=== PATIENT | male | born 1965 | race Caucasian/White ===

== ENCOUNTER → 2017-06-15 | Outpatient (CLI) | payer BC ==
--- NOTE | 2017-06-15 16:04 | XR ---
EXAMINATION TYPE: XR chest 2V DATE OF EXAM: 06/15/2017 COMPARISON: Prior chest x-ray 05/18/2015 HISTORY: Cough TECHNIQUE: Frontal and lateral views of the chest are obtained. FINDINGS: There is no focal air space opacity, pleural effusion, or pneumothorax seen. The cardiac silhouette size is within normal limits. Prominent lung volume may be indicative of COPD. Question s ome bronchial wall thickening. The osseous structures are intact. IMPRESSION: Consider reactive airways disease, bronchitis.
== END ==
LOC: RADXRYALE 15:50
PROVIDERS: ATTEND Internal Medicine
DX: J40 Bronchitis, not specified as acute or chronic (principal)
CPT/HCPCS: 71046

== ENCOUNTER 2017-07-06 09:50 | Day surgery (SDC) | payer BC ==
[2017-07-04 13:46] VITALS: BMI 29.0
[~2017-07-06 09:50] MED LIST: LACTATED RINGERS 1,000 ML IV SCH; LIDOCAINE 1% 20 ML VIAL (10MG/ML) FOR IV START INTRADERMA PRN
[2017-07-06 10:23] VITALS: RESP 16; TEMP 97.7
[2017-07-06] MEDS ORDERED: LIDOCAINE 1% INJ 10MG/ML (20 ML MDV) ONE (10:51)
[2017-07-06] MEDS ORDERED: PROPOFOL 10 MG/ML 20 ML VIAL IV ONE (10:51)
--- NOTE | 2017-07-06 11:13 | P.PCN ---
Date of Procedure: 07/06/17 Procedure(s) Performed: BRIEF HISTORY: Patient is a 52-year-old pleasant white male, scheduled for an elective colonoscopy as a part of screening for colon neoplasia. PROCEDURE PERFORMED: Colonoscopy with snare polypectomy PREOPERATIVE DIAGNOSIS: Screening for colon cancer. IV sedation per Anesthesia. PROCEDURE: After informed consent was obtained, the patient, was brought into the endoscopy unit. IV sedation was administered by Anesthesia under continuous monitoring. Digital rectal examination was normal. Initially the Olympus CF- 160 flexible video colonoscope was then inserted in the rectum, gradually advanced into the cecum without any difficulty. Careful examination was performed as the scope was gradually being withdrawn. Ileocecal valve and the appendiceal orifice were visualized and appeared normal. Prep was excellent. Mucosa of the cecum, ascending colon appeared normal. In the hepatic flexure there was a 7-8 mm sessile polyp that was removed by snare polypectomy. The rest of the, transverse colon, descending colon, sigmoid colon, and rectum appeared normal. Retroflexion was performed in the rectum and no lesions were seen. The patient tolerated the procedure well. IMPRESSION: 7-8 mm sessile hepatic flexure polyp status post polypectomy Rest of the colon appeared normal RECOMMENDATIONS: Findings of this examination were discussed with the patient as his family. He was advised to follow with the biopsy results and if the biopsy shows a adenoma, he can have a repeat colonoscopy in 5 years
[2017-07-06 11:35] VITALS: BP 150/94; PULSE 70
== END 2017-07-06 12:09 | disposition home or self-care (01) ==
LOC: ORWHC2ENDO 09:50
PROVIDERS: ATTEND Internal Medicine Gastroenterology
DX: Z12.11 Encounter for screening for malignant neoplasm of colon (principal); D12.3 Benign neoplasm of transverse colon
CPT/HCPCS: 88305; 45385; J2001; J2704

== ENCOUNTER → 2018-08-14 | Outpatient (CLI) | payer OTHER ==
[2018-08-14 19:57] LABS: ALT 49 U/L (10-49); AST 32 U/L (14-35); Albumin/Globulin Ratio 1.88 (1.60-3.17); Alkaline Phosphatase 63 U/L (41-126); BUN/Creat Ratio 15.83 Ratio (12.00-20.00); Carbon Dioxide 28.1 mmol/L (21.6-31.8); Chloride 101 mmol/L (96-109); Cholesterol 234 mg/dL (0-200); Globulin 2.5 g/dL (1.6-3.3); Glucose 116 mg/dL (70-110); Potassium 5.1 mmol/L (3.5-5.5); Sodium 140 mmol/L (135-145); Total Bilirubin 0.7 mg/dL (0.3-1.2); Total Protein 7.2 g/dL (6.2-8.2)
== END | disposition home or self-care (01) ==
LOC: LABWHC1 12:48
PROVIDERS: ATTEND Internal Medicine Clinical Cardiac Electrophysiology
DX: I10 Essential (primary) hypertension (principal); E78.5 Hyperlipidemia, unspecified
CPT/HCPCS: 36415; 80053; 80061; 83721

== ENCOUNTER → 2018-09-14 | Outpatient (CLI) | payer OTHER ==
[2018-09-14 18:59] LABS: Hemoglobin A1C 6.4 % (4.0-6.0)
[2018-09-14 19:02] LABS: LDL Cholesterol,Calculated 136.8 mg/dL (0.0-131.0); VLDL Calculation 32.2 mg/dL (5.00-40.00)
== END | disposition home or self-care (01) ==
LOC: LABWHC1 08:16
PROVIDERS: ATTEND Internal Medicine
DX: R73.9 Hyperglycemia, unspecified (principal); E78.00 Pure hypercholesterolemia, unspecified
CPT/HCPCS: 36415; 80061; 82947; 83036

== ENCOUNTER → 2020-12-27 | Outpatient (CLI) | payer OTHER, BC ==
--- NOTE | 2020-12-27 07:22 | MR ---
EXAMINATION TYPE: MR shoulder RT wo con DATE OF EXAM: 12/27/2020 COMPARISON: Plain film 11/30/2020 HISTORY: Rt Shoulder Pain TECHNIQUE: Multiplanar, multisequence imaging of the right shoulder is performed without contrast. FINDINGS: Rotator Cuff: There is a tear of the rotator cuff with retraction of the supraspinatus tendon to the level of the acromion, fluid signal is present along the humeral head at this level. Infraspinatus te ndon appears somewhat attenuated. Fluid signal is present along the musculotendinous junction of subs capularis. Subscapularis tendon is also thought to be at least partially torn and retracted, axial im age #9 series 301. Acromioclavicular Joint: There is arthropathy at the acromioclavicular joint. Distal acromial spur is present. Glenohumeral Joint: Intact, some mild remodeling at the humeral head noted Labrum: The labrum appears grossly intact given limitation of non-arthrogram study. Biceps Tendon: Fluid signal is present along the long head of biceps tendon which shows a normal posi tion in the bicipital groove Bone marrow signal: No focal abnormal marrow signal is appreciated. Other: There is a joint effusion present. IMPRESSION: Rotator cuff tear as described. Additional findings above.
== END | disposition home or self-care (01) ==
LOC: RADMRIMAIN 05:55
PROVIDERS: ATTEND Orthopaedic Surgery
DX: M75.101 Unspecified rotator cuff tear or rupture of right shoulder, not specified as traumatic (principal)

== ENCOUNTER 2022-12-01 10:10 | Day surgery (SDC) | payer OTHER, BC ==
[2022-11-24 12:36] VITALS: BMI 28.6
[~2022-12-01 10:10] MED LIST changes: -LACTATED RINGERS 1,000 ML IV SCH; +LIDOCAINE 1% (10MG/ML) FOR IV START INTRADERMA PRN; -LIDOCAINE 1% 20 ML VIAL (10MG/ML) FOR IV START INTRADERMA PRN
[2022-12-01] MEDS: LACTATED RINGERS 1,000 ML IV SCH ×2 (10:30→11:44)
[2022-12-01 10:33] VITALS: RESP 16; TEMP 98.1
[2022-12-01] MEDS ORDERED: PROPOFOL 10 MG/ML 20 ML VIAL IV ONE (11:45)
[2022-12-01] MEDS ORDERED: LIDOCAINE 1% INJ 10MG/ML (20 ML MDV) ONE (11:45)
--- NOTE | 2022-12-01 12:02 | P.PCN ---
Date of Procedure: 12/01/22 Procedure(s) Performed: BRIEF HISTORY: Patient is a 57-year-old pleasant white male scheduled for an elective colonoscopy as a part of evaluation of prior history of colon polyps. Last colonoscopy was 5 years ago. PROCEDURE PERFORMED: Colonoscopy. PREOPERATIVE DIAGNOSIS: History of colon polyps. IV sedation per Anesthesia. PROCEDURE: After informed consent was obtained, the patient, was brought into the endoscopy unit. IV sedation was administered by Anesthesia under continuous monitoring. Digital rectal examination was normal. Initially the Olympus CF-160 flexible video colonoscope was then inserted in the rectum, gradually advanced into the cecum without any difficulty. Careful examination was performed as the scope was gradually being withdrawn. Ileocecal valve and the appendiceal orifice were visualized and appeared normal. Prep was excellent. Mucosa of the cecum, ascending colon, transverse colon, descending colon, sigmoid colon, and rectum appeared normal. Scattered sigmoid diverticulosis Retroflexion was performed in the rectum and no lesions were seen. The patient tolerated the procedure well. IMPRESSION: Normal-appearing colon from rectum to cecum with no evidence of colorectal neoplasia . Scattered sigmoid diverticula RECOMMENDATIONS: Findings of this examination were discussed with the patient his family.. He was advised to have a repeat screening colonoscopy in 10 years.
[2022-12-01 12:26] VITALS: BP 118/80; PULSE 79
== END 2022-12-01 12:38 | disposition home or self-care (01) ==
LOC: ORWHC2ENDO 10:10
PROVIDERS: ATTEND Internal Medicine Gastroenterology
DX: Z12.11 Encounter for screening for malignant neoplasm of colon (principal); K57.30 Diverticulosis of large intestine without perforation or abscess without bleeding; I10 Essential (primary) hypertension; Z86.010 Personal history of colon polyps; Z79.899 Other long term (current) drug therapy
CPT/HCPCS: 45378; J2001; J2704

== ENCOUNTER 2023-06-03 10:09 | Emergency (ER) | payer OTHER, BC ==
[2023-06-03 10:25] VITALS: RESP 18
[2023-06-03] MEDS: KETOROLAC 15 MG/ML 1 ML VIAL IVP STA (10:45)
[2023-06-03] MEDS: ORPHENADRINE 30 MG/ML 2 ML VIAL IVP STA (10:45)
[2023-06-03 10:51] LABS: Basophils % (A) 0 %; Eosinophils % (A) 0 %; HCT 46.4 % (39.0-53.0); Lymphocytes # (A) 1.2 k/uL (1.0-4.8); Lymphocytes % (A) 20 %; MCHC 34.4 g/dL (31.0-37.0); MCV 96.1 fL (80.0-100.0); Mean Platelet Volume 7.1; Monocytes # (A) 0.4 k/uL (0-1.0); Monocytes % (A) 6 %; Neutrophils # (A) 4.4 k/uL (1.3-7.7); Neutrophils % (A) 72 %; Platelet Count 189 k/uL (150-450); RBC 4.83 m/uL (4.30-5.90); RDW 11.7 % (11.5-15.5); WBC 6.1 k/uL (3.8-10.6)
--- NOTE | 2023-06-03 10:58 | XR ---
EXAMINATION TYPE: XR chest 2V DATE OF EXAM: 06/03/2023 COMPARISON: 06/15/2017 HISTORY: Shortness of breath TECHNIQUE: Frontal and lateral views of the chest are obtained. FINDINGS: Scattered senescent parenchymal changes noted. Hyperinflation compatible with COPD. No evidence for infiltrate. No evidence for atelectasis. Heart size is stable. Mediastinal structures are stable and grossly unremarkable. No evidence for hilar prominence. Degenerative changes dorsal spine. IMPRESSION: 1. No evidence for acute pulmonary disease.
[2023-06-03 11:18] LABS: ALT 36 U/L (4-49); AST 32 U/L (17-59); African American GFR (CKD) >90 (>60 ml/min/1.73 sqM); Alkaline Phosphatase 84 U/L (38-126); Anion Gap 13 mmol/L; Blood Urea Nitrogen 16 mg/dL (9-20); Calcium 9.3 mg/dL (8.4-10.2); Carbon Dioxide 24 mmol/L (22-30); Chloride 98 mmol/L (98-107); Glucose 159 mg/dL (74-99); Magnesium 2.2 mg/dL (1.6-2.3); Non-African American GFR(CKD) >90 (>60 ml/min/1.73 sqM); Potassium 3.7 mmol/L (3.5-5.1); Sodium 135 mmol/L (137-145); Total Bilirubin 0.8 mg/dL (0.2-1.3); Total Protein 7.9 g/dL (6.3-8.2)
[2023-06-03 12:12] LABS: INR 0.9 (<1.2); Partial Thromboplastin Time 26.3 sec (22.0-30.0); Prothrombin Time 10.4 sec (10.0-12.5)
--- NOTE | 2023-06-03 12:39 | ED ---
Dizziness HPI - General Chief Complaint: Dizziness Stated Complaint: high blood pressure Time Seen by Provider: 06/03/23 10:16 Source: patient, RN notes reviewed Mode of arrival: ambulatory Limitations: no limitations - History of Present Illness Initial Comments: 57-year-old male presents emergency department chief complaint of left shoulder, back pain. Patient states that he woke up and fell he slept wrong. He states he went to his inversion table to ambulate helped it did not help much of his upper back. He states that it is worse with movement and states that it feels tight he denies any chest pain no shortness of breath he states he just felt off so he decided check his blood pressure in which she states it was elevated. He states he was due for his amlodipine. Patient states he took that was walking around and did feel better but his blood pressure was still elevated so he presented to the emergency department. Patient states he has no pain at rest states with movement is worse. No other complaints. - Related Data Home Medications Medication Instructions Recorded Confirmed amLODIPine [Norvasc] 10 mg PO DAILY 11/24/22 12/01/22 Previous Rx's Medication Instructions Recorded Cyclobenzaprine [Flexeril] 10 mg PO TID PRN #15 tab 06/03/23 Allergies Allergy/AdvReac Type Severity Reaction Status Date / Time No Known Allergies Allergy Verified 06/03/23 10:15 Review of Systems ROS Statement: Those systems with pertinent positive or pertinent negative responses have been documented in the HPI. ROS Other: All systems not noted in ROS Statement are negative. Past Medical History Past Medical History: Hypertension History of Any Multi-Drug Resistant Organisms: None Reported Past Surgical History: Orthopedic Surgery Additional Past Surgical History / Comment(s): COLONOSCOPY. RT ROTATOR CUFF REPAIR Past Anesthesia/Blood Transfusion Reactions: No Reported Reaction Additional Past Anesthesia/Blood Transfusion Reaction / Comment(s): never has had anesthesia Past Psychological History: No Psychological Hx Reported Smoking Status: Former smoker Past Alcohol Use History: Abuse Past Drug Use History: None Reported - Past Family History Mother Family Medical History: Cancer Course Vital Signs 06/03/23 10:11 Temperature 97.8 F Pulse Rate 95 Respiratory 18 Rate Blood Pressure 167/100 O2 Sat by Pulse 98 Oximetry EKG Findings - EKG Comments: EKG Findings:: EKG performed at 10: 23 sinus rhythm with a rate of 84 QRS 152 QRS 88 QT/QTc 397/438 - EKG Results: EKG: interpreted by [facility] Medical Decision Making - Medical Decision Making Was pt. sent in by a medical professional or institution (, [facility], ROAD PASSENGER [employer]ER, urgent care, hospital, or [facility]...) When possible be specific @ -No Did you speak to anyone other than the patient for history (EMS, parent, family, police, friend...)? What history was obtained from this source @ -No Did you review nursing and triage notes (agree or disagree)? Why? @ -I reviewed and agree with nursing and triage notes Were old charts reviewed (outside hosp., previous admission, EMS record, old EKG, old radiological studies, urgent care reports/EKG's, [facility] records)? Report findings @ -No old charts were reviewed Differential Diagnosis (chest pain, altered mental status, abdominal pain women, abdominal pain men, vaginal bleeding, weakness, fever, dyspnea, syncope, headache, dizziness, GI bleed, back pain, seizure, CVA, palpatations, mental health, musculoskeletal)? @ -Differential Back Pain: Strain, zoster, cauda equina syndrome, epidural abscess, vertebral osteomyelitis, discitis, fracture, subluxation, disc herniation, DJD, spinal stenosis, dissection, AAA, pancreatitis, peptic ulcer disease, pyelonephritis, kidney stone, this is not meant to be an all-inclusive list. EKG interpreted by me (3pts min.). @ -As above X-rays interpreted by me (1pt min.). @ -Chest x-ray shows no acute cardiopulmonary process. CT interpreted by me (1pt min.). @ -None done U/S interpreted by me (1pt. min.). @ -None done What testing was considered but not performed or refused? (CT, X-rays, U/S, labs)? Why? @ -None What meds were considered but not given or refused? Why? @ -None Did you discuss the management of the patient with other professionals (professionals i.e. [facility] Mcnam[facility], RO[employer] P[employer]ENGER [employer]ER, lab, RT, psych nurse, psych social worker, cement rubber, teacher, correction officer, pillowcase cleaner)? Give summary @ -No Was smoking cessation discussed for >3mins.? @ -No Was critical care preformed (if so, how long)? @ -No Were there social determinants of health that impacted care today? How? ( Homelessness, low income, unemployed, alcoholism, drug addiction, transportation, low edu. Level, literacy, decrease access to med. care, [facility], rehab)? @ -No Was there de-escalation of care discussed even if they declined (Discuss DNR or withdrawal of care, Hospice)? DNR status @ -No What co-morbidities impacted this encounter? (DM, HTN, Smoking, COPD, CAD, Cancer, CVA, ARF, Chemo, Hep., AIDS, mental health diagnosis, sleep apnea, morbid obesity)? @ -Hypertension Was patient admitted / discharged? Hospital course, mention meds given and route, prescriptions, significant lab abnormalities, going to OR and other pertinent info. @ -Discharge patient workup including labs, chest x-ray and EKG is unremarkable. This is reproducible pain and in the thoracic, trapezius region will be discharged with muscle lectures and anti-inflammatories return transfer discussed. Undiagnosed new problem with uncertain prognosis? @ -No Drug Therapy requiring intensive monitoring for toxicity (Heparin, Nitro, Insulin, Cardizem)? @ -No Were any procedures done? @ -No Diagnosis/symptom? @ -Thoracic back pain, scapular pain Acute, or Chronic, or Acute on Chronic? @ -Acute Uncomplicated (without systemic symptoms) or Complicated (systemic symptoms)? @Uncomplicated Side effects of treatment? @ -No Exacerbation, Progression, or Severe Exacerbation? @ -No Poses a threat to life or bodily function? How? (Chest pain, [place], [place], pneumonia, PE, COPD, DKA, ARF, appy, cholecystitis, CVA, Diverticulitis, Homicidal, Suicidal, threat to staff... and all critical care pts) @ -No - Lab Data Result diagrams: 06/03/23 10:42 06/03/23 10:42 Lab Results 06/03/23 06/03/23 06/03/23 Range/Units 10:42 10:42 10:42 WBC 6.1 (3.8-10.6) k/uL RBC 4.83 (4.30-5.90) m/uL Hgb 16.0 (13.0-17.5) gm/dL Hct 46.4 (39.0-53.0) % MCV 96.1 (80.0-100.0) fL MCH 33.0 (25.0-35.0) pg MCHC 34.4 (31.0-37.0) g/dL RDW 11.7 (11.5-15.5) % Plt Count 189 (150-450) k/uL MPV 7.1 Neutrophils % 72 % Lymphocytes % 20 % Monocytes % 6 % Eosinophils % 0 % Basophils % 0 % Neutrophils # 4.4 (1.3-7.7) k/uL Lymphocytes # 1.2 (1.0-4.8) k/uL Monocytes # 0.4 (0-1.0) k/uL Eosinophils # 0.0 (0-0.7) k/uL Basophils # 0.0 (0-0.2) k/uL PT 10.4 (10.0-12.5) sec INR 0.9 (<1.2) APTT 26.3 (22.0-30.0) sec Sodium 135 L (137-145) mmol/L Potassium 3.7 (3.5-5.1) mmol/L Chloride 98 (98-107) mmol/L Carbon Dioxide 24 (22-30) mmol/L Anion Gap 13 mmol/L BUN 16 (9-20) mg/dL Creatinine 0.70 (0.66-1.25) mg/dL Est GFR (CKD-EPI)AfAm >90 (>60 ml/min/1.73 sqM) Est GFR (CKD-EPI)NonAf >90 (>60 ml/min/1.73 sqM) Glucose 159 H (74-99) mg/dL Calcium 9.3 (8.4-10.2) mg/dL Magnesium 2.2 (1.6-2.3) mg/dL Total Bilirubin 0.8 (0.2-1.3) mg/dL AST 32 (17-59) U/L ALT 36 (4-49) U/L Alkaline Phosphatase 84 (38-126) U/L Troponin I (0.000-0.034) ng/mL Total Protein 7.9 (6.3-8.2) g/dL Albumin 5.0 (3.5-5.0) g/dL 06/03/23 Range/Units 10:42 WBC (3.8-10.6) k/uL RBC (4.30-5.90) m/uL Hgb (13.0-17.5) gm/dL Hct (39.0-53.0) % MCV (80.0-100.0) fL MCH (25.0-35.0) pg MCHC (31.0-37.0) g/dL RDW (11.5-15.5) % Plt Count (150-450) k/uL MPV Neutrophils % % Lymphocytes % % Monocytes % % Eosinophils % % Basophils % % Neutrophils # (1.3-7.7) k/uL Lymphocytes # (1.0-4.8) k/uL Monocytes # (0-1.0) k/uL Eosinophils # (0-0.7) k/uL Basophils # (0-0.2) k/uL PT (10.0-12.5) sec INR (<1.2) APTT (22.0-30.0) sec Sodium (137-145) mmol/L Potassium (3.5-5.1) mmol/L Chloride (98-107) mmol/L Carbon Dioxide (22-30) mmol/L Anion Gap mmol/L BUN (9-20) mg/dL Creatinine (0.66-1.25) mg/dL Est GFR (CKD-EPI)AfAm (>60 ml/min/1.73 sqM) Est GFR (CKD-EPI)NonAf (>60 ml/min/1.73 sqM) Glucose (74-99) mg/dL Calcium (8.4-10.2) mg/dL Magnesium (1.6-2.3) mg/dL Total Bilirubin (0.2-1.3) mg/dL AST (17-59) U/L ALT (4-49) U/L Alkaline Phosphatase (38-126) U/L Troponin I <0.012 (0.000-0.034) ng/mL Total Protein (6.3-8.2) g/dL Albumin (3.5-5.0) g/dL Disposition Clinical Impression: Pain of left scapula, Muscular pain Disposition: HOME SELF-CARE Condition: Stable Instructions (If sedation given, give patient instructions): Thoracic Pain (ED) Additional Instructions: Please return to the Emergency Department if symptoms worsen or any other concerns. Prescriptions: Cyclobenzaprine [Flexeril] 10 mg PO TID PRN #15 tab PRN Reason: Muscle Spasm Is patient prescribed a controlled substance at d/c from ED?: No Referrals: Nonstaff,Physician [Primary Care Provider] - 1-2 days Time of Disposition: 12:39
[2023-06-03] MEDS: CYCLOBENZAPRINE 10MG STARTER 3 TAB BTL PO STA (12:47)
[2023-06-03 12:53] VITALS: BP 140/92; PULSE 80; TEMP 98.2
== END 2023-06-03 12:55 | disposition home or self-care (01) ==
LOC: EC 10:09
DX: M79.18 Myalgia, other site (principal); I10 Essential (primary) hypertension; Z87.891 Personal history of nicotine dependence; Z79.899 Other long term (current) drug therapy
CPT/HCPCS: 36415; 93005; 80053; 83735; 84484; 85025; 85610; 85730; 71046; 99284; 96374; 96375; J2360; J1885

== ENCOUNTER 2023-06-07 09:04 | Emergency (ER) | payer BC, OTHER ==
[2023-06-07] MEDS: KETOROLAC 15 MG/ML 1 ML VIAL IVP STA (09:25)
[2023-06-07] MEDS: ORPHENADRINE 30 MG/ML 2 ML VIAL IVP STA (09:26)
[2023-06-07] MEDS: DEXAMETHASONE SOD PHOSPHATE 10 MG/ML 1 ML VIAL IVP STA (09:26)
[2023-06-07] MEDS: MORPHINE SULFATE 2 MG/ML SYRINGE IVP STA (09:26)
--- NOTE | 2023-06-07 09:26 | ED ---
Neck Injury/Pain HPI - General Chief Complaint: Extremity Injury, Upper Stated Complaint: Neck/Shoulder Pain Time Seen by Provider: 06/07/23 09:13 Source: patient, RN notes reviewed Mode of arrival: ambulatory Limitations: no limitations - History of Present Illness Initial Comments: This is a 57-year-old male who presents to the emergency department for neck pain and left shoulder pain. Patient was evaluated here for this 4 days ago. Pain started when he woke up in the morning and he felt like he slept on it wrong. He was concerned about his elevated blood pressure and had a cardiac workup in the emergency department which was normal. He was discharged with a prescription for Flexeril. Does not believe that this has been effective. He followed up with his primary care provider the following day and was started on prednisone, which he states has also not been helping. Pain seems to be getting worse. It is much worse with movement and to the touch. Denies any chest pain or shortness of breath. MD Complaint: neck pain - Related Data Home Medications Medication Instructions Recorded Confirmed amLODIPine [Norvasc] 10 mg PO DAILY 11/24/22 12/01/22 Previous Rx's Medication Instructions Recorded Cyclobenzaprine [Flexeril] 10 mg PO TID PRN #15 tab 06/03/23 Naproxen Sodium 550 mg PO BID PRN #30 tablet 06/07/23 methocarbamoL [Robaxin-750] 1,500 mg PO TID PRN #30 tab 06/07/23 Allergies Allergy/AdvReac Type Severity Reaction Status Date / Time No Known Allergies Allergy Verified 06/07/23 09:12 Review of Systems ROS Statement: Those systems with pertinent positive or pertinent negative responses have been documented in the HPI. ROS Other: All systems not noted in ROS Statement are negative. Past Medical History Past Medical History: Hypertension History of Any Multi-Drug Resistant Organisms: None Reported Past Surgical History: Orthopedic Surgery Additional Past Surgical History / Comment(s): COLONOSCOPY. RT ROTATOR CUFF REPAIR Past Anesthesia/Blood Transfusion Reactions: No Reported Reaction Additional Past Anesthesia/Blood Transfusion Reaction / Comment(s): never has had anesthesia Past Psychological History: No Psychological Hx Reported Smoking Status: Former smoker Past Alcohol Use History: Abuse Past Drug Use History: None Reported - Past Family History Mother Family Medical History: Cancer General Exam Limitations: no limitations General appearance: alert, in no apparent distress Head exam: Present: atraumatic, normocephalic, normal inspection Neck exam: Present: tenderness (Posterior cervical spine and left lateral side of the neck.), full ROM Respiratory exam: Present: normal lung sounds bilaterally. Absent: respiratory distress, wheezes, rales, rhonchi, stridor Cardiovascular Exam: Present: regular rate, normal rhythm, normal heart sounds. Absent: systolic murmur, diastolic murmur, rubs, gallop, clicks Extremities exam: Present: other (Tenderness palpation over the left shoulder. Range of motion limited by pain. No deformities. 2+ radial pulses.) Neurological exam: Present: alert, oriented X3, CN II-XII intact Psychiatric exam: Present: normal affect, normal mood Skin exam: Present: warm, dry, intact, normal color. Absent: rash Course Vital Signs 06/07/23 06/07/23 06/07/23 09:10 10:12 11:23 Temperature 98.0 F 97.8 F 97.9 F Pulse Rate 94 78 77 Respiratory 18 18 18 Rate Blood Pressure 148/98 153/93 150/86 O2 Sat by Pulse 99 97 98 Oximetry Medical Decision Making - Medical Decision Making This is a 57 year old male who presents to the emergency department for neck pain and shoulder pain. Was pt. sent in by a medical professional or institution? @ -No Did you speak to anyone other than the patient for history? @ -No Did you review nursing and triage notes? @ -Yes, and I agree, it is accurate with regards to the patient's symptoms. Were old charts reviewed? @ -No Differential Diagnosis? @ -Differential Neck Pain: Fracture, dislocation, contusion, strain, DDD, disc herniation, this is not meant to be an all-inclusive list. EKG interpreted by me (3pts min.)? @ -Not obtained X-rays interpreted by me (1pt min.)? @ -X-ray of the left shoulder and cervical spine obtained. My interpretation identifies no acute fractures. CT interpreted by me (1pt min.)? @ -Not obtained U/S interpreted by me (1pt. min.)? @ -Not obtained What testing was considered but not performed? (CT, X-rays, U/S, labs)? Why? @ -None What meds were considered but not given? Why? @ -None Did you discuss the management of the patient with other professionals? @ -No Did you reconcile home meds? @ -No Was smoking cessation discussed for >3mins.? @ -No Was critical care preformed (if so, how long)? @ -No Were there social determinants of health that impacted care today? How? (Homelessness, low income, unemployed, alcoholism, drug addiction, transportation, low edu. Level, literacy, decrease access to med. care, [facility], rehab)? @ -No Was there de-escalation of care discussed even if they declined? (Discuss DNR or withdrawal of care, Hospice)? @ -No What co-morbidities impacted this encounter? (DM, HTN, Smoking, COPD, CAD, Cancer, CVA, Hep., AIDS, mental health diagnosis, sleep apnea, morbid obesity)? @ -HTN Was patient admitted / discharged? @ -Discharged. X-ray of the left shoulder demonstrates moderate AC joint arthropathy without acute process. X-ray of the cervical spine demonstrates straightening that is nonspecific and can be associated with muscular spasm. He also has degenerative disc disease at C5-C6 and C6-C7. Patient had a complete cardiac workup at this facility on 06/02, which was negative. Given that symptoms are reproducible and worse with movement, advised that they are likely musculoskeletal in nature. Symptoms well-controlled in the emergency dep artment. Advised that we can try different anti-inflammatories and muscle relaxants to see if they are more effective. Prescription for Robaxin and naproxen provided with dosing instructions reviewed. Also advised warm moist heat. Patient discharged home in stable condition. Undiagnosed new problem with uncertain prognosis? @ -None Drug Therapy requiring intensive monitoring for toxicity (Heparin, Nitro, Insulin, Cardizem)? @ -None Were any procedures done? @ -None Diagnosis/symptom? @ -Cervical strain Acute, or Chronic, or Acute on Chronic? @ -Acute Uncomplicated (without systemic symptoms) or Complicated (systemic symptoms)? @ -Uncomplicated Side effects of treatment? @ -None Exacerbation, Progression, or Severe Exacerbation] @ -Not applicable Poses a threat to life or bodily function? @ -No Return precautions reviewed in depth, the patient is instructed to return to the emergency department with any new, worsening, or concerning symptoms. Patient verbalized understanding. This case was discussed in detail with the attending ED physician, Dr. Alejandra. Presentation, findings, and treatment plan discussed in detail as well. - Radiology Data Radiology results: report reviewed, image reviewed Disposition Clinical Impression: Cervical muscle strain Disposition: HOME SELF-CARE Instructions (If sedation given, give patient instructions): Cervical Strain (ED), Neck Pain (ED), Acute Neck Pain (ED) Additional Instructions: Return to the emergency department with any new, worsening, or concerning symptoms. Take the naproxen with Tylenol as needed for pain relief. If you choose to take the naproxen, do not take any other anti-inflammatories such as ibuprofen, take 1 or the other. You can try taking the Robaxin as 1 to 2 tablets up to 3-4 times daily. Do not take this with Flexeril, take 1 or the other. Follow up with your primary care provider in 1-2 days. Prescriptions: Naproxen Sodium 550 mg PO BID PRN #30 tablet PRN Reason: Pain methocarbamoL [Robaxin-750] 1,500 mg PO TID PRN #30 tab PRN Reason: Pain Is patient prescribed a controlled substance at d/c from ED?: No Referrals: None,Stated [Primary Care Provider] - 1-2 days Time of Disposition: 11:05
[2023-06-07 09:29] VITALS: RESP 18
--- NOTE | 2023-06-07 10:04 | XR ---
EXAMINATION TYPE: XR shoulder complete LT DATE OF EXAM: 06/07/2023 COMPARISON: NONE HISTORY: Pain TECHNIQUE: Three views are submitted. FINDINGS: The osseous structures are intact. There is no acute fracture or dislocation. Moderate AC joint arth ropathy. Mild diffuse osteopenia.. IMPRESSION: 1. Moderate AC joint arthropathy.
--- NOTE | 2023-06-07 10:06 | XR ---
EXAMINATION TYPE: XR cervical spine comp DATE OF EXAM: 06/07/2023 COMPARISON: NONE HISTORY: Pain TECHNIQUE: Four views are submitted. FINDINGS: The odontoid is intact. There are no compression deformities. The prevertebral soft tissue structur es are within normal limits. There is straightening of the cervical spine. Moderate degenerative disc disease C5-C6 and mild changes C6-C7. Alignment is seen to the level of C7. Mild generalized osteope florian. IMPRESSION: 1. Straightening the cervical spine is nonspecific and be associated with muscular spasm. Degenerativ e disc disease C5-6 and C6-C7. Recommend follow-up MRI..
[2023-06-07] MEDS: MORPHINE SULFATE 4 MG/ML SYRINGE IVP STA (10:32)
[2023-06-07 11:33] VITALS: BP 150/86; PULSE 77; TEMP 97.9
== END 2023-06-07 11:25 | disposition home or self-care (01) ==
LOC: EC 09:04
DX: S16.1XXA Strain of muscle, fascia and tendon at neck level, initial encounter (principal); M19.012 Primary osteoarthritis, left shoulder; M50.322 Other cervical disc degeneration at C5-C6 level; I10 Essential (primary) hypertension; Z79.899 Other long term (current) drug therapy; Z87.891 Personal history of nicotine dependence; X58.XXXA Exposure to other specified factors, initial encounter
CPT/HCPCS: 72050; 73030; 99284; 96374; 96375 ×3; 96376; J2270 ×2; J1100; J2360; J1885